=== PATIENT | female | born 1990 | race Two or more races ===

== ENCOUNTER 2019-09-08 21:52 | Emergency (ER) | payer MEDICAID, OTHER ==
[~2019-09-08] VITALS: Ht 175.3 cm; Wt 79.8 kg
[2019-09-08 22:32] VITALS: BP 113/57
[2019-09-09] MEDS ORDERED: KETOROLAC TROMETH 60MG/2ML VIAL IM ONE (04:45)
== END 2019-09-09 05:31 | disposition home or self-care (01) ==
LOC: ER 21:52
DX: S16.1XXA Strain of muscle, fascia and tendon at neck level, initial encounter (principal); M62.838 Other muscle spasm; V43.62XA Car passenger injured in collision with other type car in traffic accident, initial encounter; Y93.89 Activity, other specified; Y92.488 Other paved roadways as the place of occurrence of the external cause; Y99.8 Other external cause status
CPT/HCPCS: 70450; 72125; 72170; 73630; 96372; 99285; J1885